=== PATIENT | male | born 1940 | race Caucasian/White ===

== ENCOUNTER → 2017-02-22 | Outpatient (CLI) | payer MEDICARE | END | disposition home or self-care (01) | LOC: CARD 10:00 | PROC: 02HV33Z Insertion of Infusion Device into Superior Vena Cava, Percutaneous Approach (ICD-10-PCS; principal; 2017-02-22) | DX: Z45.2 Encounter for adjustment and management of vascular access device (principal); C34.81 Malignant neoplasm of overlapping sites of right bronchus and lung; R91.8 Other nonspecific abnormal finding of lung field; Z95.0 Presence of cardiac pacemaker ==